=== PATIENT | male | born 1995 | race Caucasian/White ===

== ENCOUNTER → 2018-08-03 09:29 | Outpatient (CLI) | payer SELFPAY ==
--- NOTE | 2018-08-03 09:43 | CT_ITS ---
STUDY: CT SCAN REST LEFT REASON FOR EXAM: Male, 23 years old. Navicular fracture. RADIATION DOSAGE (If Supplied By Facility): CTDIvol = ( 24.58 ) mGy, DLP = ( 511.44 ) mGycm. Individualized dose optimization techniques were used for this CT.? TECHNIQUE: Multiple axial tomographic images are obtained without intravenous contrast demonstration. Coronal and sagittal reconstruction was obtained as well. COMPARISON: None. FINDINGS: There is evidence of a nondisplaced fracture through the waist of the navicular bone. There is good alignment. Soft tissue swelling. CT/Extremity Upper without Contra IMPRESSION: Nondisplaced transverse fracture through the waist of the navicular bone. There is good alignment. Soft tissue swelling. Electronically Signed: Erasmo Cook MD at 10:22 EDT Tel [phone], Service support ,
--- NOTE | 2018-08-03 09:44 | CT_ITS ---
STUDY: CT SCAN WRIST RIGHT REASON FOR EXAM: Male, 23 years old. Navicular fracture. RADIATION DOSAGE (If Supplied By Facility): CTDIvol = ( 24.58 ) mGy, DLP = ( 536.02 ) mGycm. Individualized dose optimization techniques were used for this CT.? TECHNIQUE: Multiple axial tomographic images of the right wrist were obtained without intravenous contrast administration. Coronal and sagittal reconstruction was obtained as well. COMPARISON: None. FINDINGS: There is a nondisplaced fracture through the waist of the scaphoid bone. There is no evidence of dislocation. Soft tissue swelling. CT/Extremity Upper without Contra IMPRESSION: Nondisplaced fracture of the right navicular bone through the waist. Soft tissue swelling. Electronically Signed: Erasmo Cook MD at 10:17 EDT Tel [phone], Service support ,
== END ==
PROVIDERS: Referring Provider Specialist; Visit Provider Specialist
DX: S62.011A Displaced fracture of distal pole of navicular [scaphoid] bone of right wrist, initial encounter for closed fracture (principal); S62.022A Displaced fracture of middle third of navicular [scaphoid] bone of left wrist, initial encounter for closed fracture
CPT/HCPCS: 73200